=== PATIENT | male | born 1975 | race Caucasian/White ===

== ENCOUNTER 2018-12-06 20:57 | Emergency (ER) | payer MEDICARE, SELFPAY ==
[2018-12-06] VITALS (16 sets, daily range): BP systolic 122–146; BP diastolic 73–89; PULSE 76–94; RESP 8–15; TEMP 36.7; O2SAT 93–97
--- NOTE | 2018-12-06 21:11 | W.ED.GENAD ---
Discharge Plan Disposition Patient Disposition: HOME Condition: Stable Discharge Details Chief Complaint: Chest Pain Clinical Impression: Burning chest pain Primary Care Provider: [facility] Provider: Noman Mayes Home Meds and New Rx's Prescriptions: No Action levothyroxine 88 mcg Tablet 88 mcg PO DAILY RF: 0 losartan 25 mg Tablet 25 mg PO DAILY RF: 0 metoprolol succinate 25 mg Tablet Extended Release 24 Hr 25 mg PO DAILY RF: 0 bupropion HCl [Wellbutrin XL] 150 mg Tablet Extended Release 24 Hr 150 mg PO DAILY RF: 0 buprenorphine-naloxone [Suboxone] 8-2 mg Film 2 film Sublingual DAILY RF: 0 Discharge Instructions Instructions: Chest Pain (ED) Additional Instructions: follow up with your primary care provider within a week if you have severe worsening of pain, high fevers or feel more ill return to the emergency department Medical Decision Making 43 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 Denies cough, fevers, leg swelling. She has no abdominal tenderness, no murmurs and clear lungs speaking in full sentences in no distress. Her ekg shows nonspecific st depressions in the lateral leads, her heart score is a 3 based on this, age and smoking hx. Will send troponin. She is wells score low and perc negative so doubt PE. no tearing back pain and normal vascular exam so doubt dissection. Clear lungs without pleuritic pain so doubt ptx and no cuogh/fever so doubt pna at this time pt remains stable with normal tele, labs unremarkable, has anemia but states this is chronic. Feel she is stable for d/c, will have her f/u with her pcp and return if worsening Differential Diagnosis gerd, gastritis ,nstemi Lab Data Lab results reviewed: Yes I reviewed the patient's lab results. ECG Data Attestation: I personally reviewed and interpreted this ECG (s) as follows: Prior ECG tracings: not available for review Interpretation: sinus rhyhtm rate of 90, p5 150 HPI General Mode of arrival: EMS. Date/Time Provider Initiated Documentation: 12/06/18 20:57. Limitations to Documentation: no limitations. Information obtained by: patient. History of Present Illness 43 year old M presents to the emergency department with the chief complaint of chest burning, described as moderate, Quality is described as burning and aching, and is localized to the chest. Patient reports no radiation. Patient started experiencing this day(s) (1) and it has been constant. No relieving factors improve symptom(s), No exacerbating factors reported . Patient did receive the following treatments prior to arrival, none Related Data Home Medications Medication Instructions Recorded Confirmed buprenorphine-naloxone [Suboxone] 2 film SUBLINGUAL DAILY 12/06/18 12/06/18 bupropion HCl [Wellbutrin XL] 150 mg PO DAILY 12/06/18 12/06/18 levothyroxine 88 mcg PO DAILY 12/06/18 12/06/18 losartan 25 mg PO DAILY 12/06/18 12/06/18 metoprolol succinate 25 mg PO DAILY 12/06/18 12/06/18 Allergies Allergy/AdvReac Type Severity Reaction Status Date / Time No Known Allergies Allergy Unverified 12/06/18 21:19 General Stated Complaint: Chest Pain JUAN: 2 Review of Systems Review of Systems All systems reviewed & are unremarkable except as noted in HPI and below Constitutional Denies chills, Denies fever(s) and Denies weakness Cardiovascular Denies chest pain and Denies dyspnea Respiratory Denies cough and Denies dyspnea Gastrointestinal Denies abdominal pain, Denies nausea and Denies vomiting Musculoskeletal Denies joint swelling Integumentary/Breasts Denies rash Neurologic Denies weakness [facility] Social History Smoking/Tobacco Use Status: Current every day Tobacco Type: cigarettes Tobacco: How many years used: 5 Alcohol Intake: never Drug use: Never Exam Const General: no acute distress Orientation: alert HENMT Head: atraumatic Ears: external ears normal General nose exam: external nose normal Mouth: moist mucous membranes Eyes General: appearance normal, both eyes and all related structures Neck Neck: normal visual inspection Resp Effort & Inspection: normal respiratory effort and able to speak in complete sentences Cardio Rate: regular rate Skin General skin exam: no rashes or lesions noted Neuro General: alert and oriented x3 Extrem General: normal to inspection Psych Mental Status: mental status grossly normal Course Vital Signs Temperature 36.7 C 12/06/18 21:01 Pulse 93 H 12/06/18 21:01 Respiratory Rate 15 12/06/18 21:01 Blood Pressure 146/89 H 12/06/18 21:01 Pulse Oximetry 97 12/06/18 21:01 Temperature 36.7 C 12/06/18 21:01 Temperature Source Temporal Artery Scan 12/06/18 21:01 Pulse 93 H 12/06/18 21:01 Respiratory Rate 15 12/06/18 21:01 Respiratory Effort 12/06/18 21:01 Blood Pressure 146/89 H 12/06/18 21:01 Pulse Oximetry 97 12/06/18 21:01 Oxygen Delivery Method Room Air 12/06/18 21:01 Oxygen Flow Rate 0 12/06/18 21:01 Pain Level 8 12/06/18 21:01
--- NOTE | 2018-12-06 21:16 | ED.GENADUL_ITS ---
Discharge Plan Disposition Patient Disposition: HOME Condition: Stable Discharge Details Chief Complaint: Chest Pain Clinical Impression: Burning chest pain Primary Care Provider: [facility] Provider: Noman Mayes Home Meds and New Rx's Prescriptions: No Action levothyroxine 88 mcg Tablet 88 mcg PO DAILY RF: 0 losartan 25 mg Tablet 25 mg PO DAILY RF: 0 metoprolol succinate 25 mg Tablet Extended Release 24 Hr 25 mg PO DAILY RF: 0 bupropion HCl [Wellbutrin XL] 150 mg Tablet Extended Release 24 Hr 150 mg PO DAILY RF: 0 buprenorphine-naloxone [Suboxone] 8-2 mg Film 2 film Sublingual DAILY RF: 0 Discharge Instructions Instructions: Chest Pain (ED) Additional Instructions: follow up with your primary care provider within a week if you have severe worsening of pain, high fevers or feel more ill return to the emergency department Medical Decision Making 43 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 Denies cough, fevers, leg swelling. She has no abdominal tenderness, no murmurs and clear lungs speaking in full sentences in no distress. Her ekg shows nonspecific st depressions in the lateral leads, her heart score is a 3 based on this, age and smoking hx. Will send troponin. She is wells score low and perc negative so doubt PE. no tearing back pain and normal vascular exam so doubt dissection. Clear lungs without pleuritic pain so doubt ptx and no cuogh/fever so doubt pna at this time pt remains stable with normal tele, labs unremarkable, has anemia but states this is chronic. Feel she is stable for d/c, will have her f/u with her pcp and return if worsening Differential Diagnosis gerd, gastritis ,nstemi Lab Data Lab results reviewed: Yes I reviewed the patient's lab results. ECG Data Attestation: I personally reviewed and interpreted this ECG (s) as follows: Prior ECG tracings: not available for review Interpretation: sinus rhyhtm rate of 90, p5 150 HPI General Mode of arrival: EMS . Date/Time Provider Initiated Documentation: 12/06/18 20:57 . Limitations to Documentation: no limitations . Information obtained by: patient . History of Present Illness 43 year old M presents to the emergency department with the chief complaint of chest burning, described as moderate, Quality is described as burning and aching, and is localized to the chest. Patient reports no radiation. Patient started experiencing this day(s) (1) and it has been constant. No relieving factors improve symptom(s), No exacerbating factors reported . Patient did receive the following treatments prior to arrival, none Related Data Home Medications Medication Instructions Recorded Confirmed buprenorphine-naloxone [Suboxone] 2 film SUBLINGUAL DAILY 12/06/18 12/06/18 bupropion HCl [Wellbutrin XL] 150 mg PO DAILY 12/06/18 12/06/18 levothyroxine 88 mcg PO DAILY 12/06/18 12/06/18 losartan 25 mg PO DAILY 12/06/18 12/06/18 metoprolol succinate 25 mg PO DAILY 12/06/18 12/06/18 Allergies Allergy/AdvReac Type Severity Reaction Status Date / Time No Known Allergies Allergy Unverified 12/06/18 21:19 General Stated Complaint: Chest Pain JUAN: 2 Review of Systems Review of Systems All systems reviewed & are unremarkable except as noted in HPI and below Constitutional Denies chills, Denies fever(s) and Denies weakness Cardiovascular Denies chest pain and Denies dyspnea Respiratory Denies cough and Denies dyspnea Gastrointestinal Denies abdominal pain, Denies nausea and Denies vomiting Musculoskeletal Denies joint swelling Integumentary/Breasts Denies rash Neurologic Denies weakness [facility] Social History Smoking/Tobacco Use Status: Current every day Tobacco Type: cigarettes Tobacco: How many years used: 5 Alcohol Intake: never Drug use: Never Exam Const General: no acute distress Orientation: alert HENMT Head: atraumatic Ears: external ears normal General nose exam: external nose normal Mouth: moist mucous membranes Eyes General: appearance normal, both eyes and all related structures Neck Neck: normal visual inspection Resp Effort & Inspection: normal respiratory effort and able to speak in complete sentences Cardio Rate: regular rate Skin General skin exam: no rashes or lesions noted Neuro General: alert and oriented x3 Extrem General: normal to inspection Psych Mental Status: mental status grossly normal Course Vital Signs Temperature 36.7 C 12/06/18 21:01 Pulse 93 H 12/06/18 21:01 Respiratory Rate 15 12/06/18 21:01 Blood Pressure 146/89 H 12/06/18 21:01 Pulse Oximetry 97 12/06/18 21:01 Temperature 36.7 C 12/06/18 21:01 Temperature Source Temporal Artery Scan 12/06/18 21:01 Pulse 93 H 12/06/18 21:01 Respiratory Rate 15 12/06/18 21:01 Respiratory Effort 12/06/18 21:01 Blood Pressure 146/89 H 12/06/18 21:01 Pulse Oximetry 97 12/06/18 21:01 Oxygen Delivery Method Room Air 12/06/18 21:01 Oxygen Flow Rate 0 12/06/18 21:01 Pain Level 8 12/06/18 21:01
[2018-12-06 21:22] LABS: Abs Immature Grans 0.02 k/cumm (0.0-0.09); Absolute Basophil Count 0.04 k/cumm (0.0-0.2); Absolute Eosinophil Count 0.12 k/cumm (0.0-0.7); Absolute Lymphocyte Count 1.49 k/cumm (1.2-3.4); Absolute Monocyte Count 0.32 k/cumm (0.11-0.7); Absolute Neutrophil Count 5.03 k/cumm (1.2-6.7); Basophils % 0.6; Eosinophils % 1.7; HCT 33.9 % (40.0-50.0); HGB 10.3 g/dL (13.5-17.5); Immature Grans % 0.3; Lymphocytes % 21.2; Mean Corp. HGB Concentration 30.4 g/dL (32.0-36.0); Mean Corpuscular Hemoglobin 23.4 pg (27.0-33.0); Mean Platelet Volume 10.1 fL (8.0-11.0); Monocytes % 4.6; Neutrophils % 71.6; Platelet Count 205 x1000/uL (130-400); RBC Distribution Width 16.5 % (11.8-14.1); White Blood Cell Count 7.02 k/cumm (4.4-10.8)
[2018-12-06 21:36] LABS: INR 1.1 (0.9-1.1); Prothrombin Time 10.8 sec (9.3-11.0)
[2018-12-06 21:40] LABS: ALT 21 U/L (12-78); AST 17 U/L (15-37); Albumin 3.3 g/dL (3.4-5.0); Alkaline Phosphatase 72 U/L (46-116); Anion Gap 9.7 mmol/L (3-11); BUN 10 mg/dL (7-18); Bilirubin, Total 0.5 mg/dL (0.2-1.0); CO2 27.3 mmol/L (21.0-32.0); Calcium 8.7 mg/dL (8.5-10.1); Chloride 103 mmol/L (98-107); Glucose 279 mg/dL (70-100); Lipase 79 U/L (73-393); Potassium 3.3 mmol/L (3.5-5.1); Sodium 140 mmol/L (136-145); Total Protein 8.1 g/dL (6.4-8.2)
[2018-12-06 22:13] LABS: Troponin I < 0.05 ng/mL (0.00-0.06)
[2018-12-06] MEDS: Ondansetron 4 MG/2 ML VIAL IVP (22:20)
[2018-12-06] MEDS: Normal Saline Flush 10 ML SYR IVP (22:22)
[2018-12-06 22:27] LABS: PTT Activated 24.5 sec (21.0-31.4)
== END 2018-12-06 22:47 | disposition home or self-care (01) ==
PROVIDERS: Emergency Provider Emergency Medicine
DX: R07.9 Chest pain, unspecified (principal); R00.2 Palpitations; R29.810 Facial weakness; F17.210 Nicotine dependence, cigarettes, uncomplicated
CPT/HCPCS: 36415; 80053; 83690; 93005; 96374; 99284; 84484; 85025; 85610; 85730; 93010; J2405